=== PATIENT | male | born 1985 | race Caucasian/White ===

== ENCOUNTER 2021-06-08 14:36 | Emergency (ER) | payer OTHER, SELFPAY ==
[2021-06-08] VITALS (17 sets, daily range): BP systolic 121–158; BP diastolic 65–89; PULSE 58–88; RESP 17–27; TEMP 37.3; O2SAT 98–100
--- NOTE | 2021-06-08 14:41 | ED.GENADUL_ITS ---
Discharge Plan Disposition Patient Disposition: HOME Condition: Stable Discharge Details Clinical Impression: Pneumothorax on left, Fracture, ribs Primary Care Provider: Unknown,Unknown ED Provider: Diana Zavala Home Meds and New Rx's Prescriptions: New oxycodone 5 mg tablet 5 mg PO Q6H PRN (Reason: pain) Qty: 10 RF: 0 Discharge Instructions Instructions: Traumatic Pneumothorax (ED), Rib Fracture (ED) Additional Instructions: Apply ice to the affected area several times daily for 20 minutes at a time. Alternate tylenol and motrin as needed and directed for pain. Take the oxycodone for pain not relieved with Tylenol or Motrin. You can also try [id number] lidocaine patches to take as needed and directed for pain. Use the incentive spirometer as directed to ensure that you are taking deep breaths to prevent the development of pneumonia. Obtain an outpatient chest x-ray in 1 week for further evaluation and to assess for resolution of the pneumothorax. You were given an outpatient prescription order for a chest xray. No snowboarding, scuba diving or flying for 6 weeks. No aerobic exercise for 2 weeks. Follow-up with your primary care doctor in 1 week. Return to any emergency department with any worsening or new concerning symptoms such as difficulty breathing, worsening pain, vomiting or any other concerns. Discharge Data Discharge Date/Time-TO BE ENTERED AT DEPARTURE: 06/08/21 17:18 Discharge Physician: Diana Zavala Medical Decision Making <SONAL Chappell - Last Filed: 06/09/21 08:04> 35-year-old gentleman presents after a snowboard accident proximal hours ago. Although not moving fast, had direct trauma to his anterior upper abdomen and lower chest wall. He appears uncomfortable but his pulse is in the 80s, O2 sats 98% on room air. Diminished-question absent left lower breath sounds. Examination certainly concerning for a pneumothorax, rib fracture, chest wall injury, splenic contusion and/or laceration, etc. Plan to obtain IV access, routine laboratory values and obtain CT imaging of his chest, abdomen, pelvis with contrast. Patient will be given 1 L IV fluid. Patient declines any pain medication. Scalp view of the CT available, pneumothorax present. Awaiting additional imaging. Patient placed on 2 L nasal cannula O2. Discussed initial CT findings with patient, he is agreeable to IV morphine, I spoke with his who was outside in the car regarding his visit as well. Laboratory values do not reveal any obvious emergent process. CT finding reveal 5th and fourth rib fracture, small pneumothorax, maximum dimension of 2 cm. Mild opacities in the lower lobes may represent atelectasis or contusions. Case discussed with Dr. Rosales, surgery, who will personally evaluate the CT and patient and give recommendations. Imaging Data Radiologic Study: Attestation: I personally reviewed and interpreted this imaging study as follows: Imaging: CT Scan Radiologist's impression: PROCEDURE INFORMATION: Exam: CT Chest With Contrast; Diagnostic Exam date and time: 06/08/2021 2:57 PM Age: 35 years old Clinical indication: Injury or trauma; Other: Snowboard accident; Generalized; Blunt trauma (contusions or hematomas); Injury date: 06/08/20 TECHNIQUE: Imaging protocol: Diagnostic computed tomography of the chest with contrast. Radiation optimization: All CT scans at this facility use at least one of these dose optimization techniques: automated exposure control; mA and/or kV adjustment per patient size (includes targeted exams where dose is matched to clinical indication); or iterative reconstruction. Contrast material: [id number]; Contrast volume: 100 ml; Contrast route: INTRAVENOUS (IV); COMPARISON: No relevant prior studies available. FINDINGS: Lungs: Mild opacities in the lower lobes may represent atelectasis or contusions.. Pleural spaces: Small pneumothorax anteriorly . Maximum dimension 2 cm. Heart: Unremarkable. No cardiomegaly. No pericardial effusion. Aorta: Unremarkable. No aortic aneurysm. Lymph nodes: Unremarkable. No enlarged lymph nodes. Bones/joints: Minimally displaced left lateral 5th rib fracture. Subcutaneous emphysema adjacent to the fracture. Mild contour abnormality in the left anterior 4th rib may represent nondisplaced fracture.. Soft tissues: See Bones/joints finding. IMPRESSION: 1. Minimally displaced left lateral 5th rib fracture. Subcutaneous emphysema adjacent to the fracture. Mild contour abnormality in the left anterior 4th rib may represent nondisplaced fracture.. 2. Small pneumothorax anteriorly . Maximum dimension 2 cm. LUZ MARINA ZAYAS Preliminary Radiology Report Page 2 of 3 3. Mild opacities in the lower lobes may represent atelectasis or contusions.. Radiologic Study #2: Imaging: X-Ray Radiologist's impression: PROCEDURE INFORMATION: Exam: XR Chest Exam date and time: 06/08/2021 3:25 PM Age: 35 years old Clinical indication: Injury or trauma; Other: Snowboard accident; Blunt trauma (contusions or hematomas); Injury date: 06/08/20; Injury details: Lt pneumothorax, assess TECHNIQUE: Imaging protocol: XR of the chest. Views: 1 view. COMPARISON: CT CHEST/ABD/PEL W 06/08/2021 3:03 PM FINDINGS: Lungs: Patchy opacities in the left hemithorax may represent atelectasis or contusion Pleural spaces: Lucency in the left apex consistent with small left pneumothorax Heart/Mediastinum: Unremarkable. No cardiomegaly. Bones/joints: Minimally displaced left lateral rib fracture seen better on CT IMPRESSION: Patchy opacities in the left hemithorax may represent atelectasis or contusion Lab Data Lab results reviewed: Yes I reviewed the patient's lab results. Labs: Laboratory Tests Range/Units 06/08/21 06/08/21 06/08/21 15:00 15:00 15:00 WBC (4.4-10.8) 10^3/uL 11.71 H RBC (4.36-5.78) 10^6/uL 4.95 Hgb (13.5-17.5) g/dL 14.9 Hct (40.0-50.0) % 44.5 MCV (80-95) fL 89.9 MCH (27.0-33.0) pg 30.1 MCHC (32.0-36.0) % 33.5 RDW (11.8-14.1) % 12.0 Plt Count (130-400) 10^3/uL 251 MPV (8.0-11.0) fL 10.6 Immature Gran % 0.3 Neutrophils % 83.1 Lymphocytes % 11.1 Monocytes % 4.4 Eosinophils % 0.8 Basophils % 0.3 Nucleated RBC % % 0 Absolute Neutrophils (1.2-6.7) 10^3/uL 9.73 H Absolute Lymphocytes (1.2-3.4) 10^3/uL 1.30 Absolute Monocytes (0.1-0.8) 10^3/uL 0.52 Absolute Eosinophils (0.0-0.7) 10^3/uL 0.09 Absolute Basophils (0.0-0.2) 10^3/uL 0.04 Sodium (136-145) mmol/L 142 Potassium (3.5-5.1) mmol/L 3.7 Chloride (98-107) mmol/L 107 Carbon Dioxide (21.0-32.0) mmol/L 24.6 Anion Gap (3-11) mmol/L 10.4 BUN (7-18) mg/dL 24 H Creatinine (0.70-1.30) mg/dL 1.5 H Estimated GFR/1.73 m2 (mL/min/1.73m2) 52.95 Glucose (74-106) mg/dL 81 Calcium (8.5-10.1) mg/dL 9.2 Magnesium (1.8-2.4) mg/dL 1.8 Total Bilirubin (0.2-1.0) mg/dL 0.5 AST (15-37) U/L 43 H ALT (16-63) U/L 49 Alkaline Phosphatase (46-116) U/L 67 Troponin I (<or=60) ng/L < 50 Total Protein (6.4-8.2) g/dL 7.4 Albumin (3.4-5.0) g/dL 4.3 Lipase (73-393) U/L 138 COVID-19 Source Patient ABO/Rh A Positive Antibody Screen NEGATIVE Range/Units 06/08/21 15:25 WBC (4.4-10.8) 10^3/uL RBC (4.36-5.78) 10^6/uL Hgb (13.5-17.5) g/dL Hct (40.0-50.0) % MCV (80-95) fL MCH (27.0-33.0) pg MCHC (32.0-36.0) % RDW (11.8-14.1) % Plt Count (130-400) 10^3/uL MPV (8.0-11.0) fL Immature Gran % Neutrophils % Lymphocytes % Monocytes % Eosinophils % Basophils % Nucleated RBC % % Absolute Neutrophils (1.2-6.7) 10^3/uL Absolute Lymphocytes (1.2-3.4) 10^3/uL Absolute Monocytes (0.1-0.8) 10^3/uL Absolute Eosinophils (0.0-0.7) 10^3/uL Absolute Basophils (0.0-0.2) 10^3/uL Sodium (136-145) mmol/L Potassium (3.5-5.1) mmol/L Chloride (98-107) mmol/L Carbon Dioxide (21.0-32.0) mmol/L Anion Gap (3-11) mmol/L BUN (7-18) mg/dL Creatinine (0.70-1.30) mg/dL Estimated GFR/1.73 m2 (mL/min/1.73m2) Glucose (74-106) mg/dL Calcium (8.5-10.1) mg/dL Magnesium (1.8-2.4) mg/dL Total Bilirubin (0.2-1.0) mg/dL AST (15-37) U/L ALT (16-63) U/L Alkaline Phosphatase (46-116) U/L Troponin I (<or=60) ng/L Total Protein (6.4-8.2) g/dL Albumin (3.4-5.0) g/dL Lipase (73-393) U/L COVID-19 Source Nasal/Nares Patient ABO/Rh Antibody Screen <Diana Zavala DO - Last Filed: 06/09/21 10:49> 1530 --please see SONAL Martin's note for initial presentation, exam, and plan. Case endorsed to follow-up with Dr. Rosales. 1630 --Dr. Rosales reviewed imaging and as pneumothorax is ~ 5% with normal heart rate and oxygen saturation, she states patient could reasonably be discharged home with incentive spirometer if he would prefer to go home. Patient was on his way home to [place] when he stopped here and he states he would prefer to go home. Dr. Rosales recommends follow-up chest x-ray in 1 week to assess for re solution of pneumothorax. He was given a paper prescription for a 2 view chest x-ray. He was advised to alternate Tylenol and Motrin, Lidoderm patches and was given oxycodone for breakthrough pain. He was advised no flying, scuba diving or snowboarding for 6 weeks and no aerobic exercise for 2 weeks. He was given an incentive spirometer for home. Patient was given radiology disc to go. Advised to follow-up in any emergency department with any worsening or new concerning symptoms such as worsening shortness of breath, chest pain, abdominal pain or vomiting. Medical Records Medical records reviewed: Yes I reviewed the patient's medical records. Imaging Data Radiologic Study: Radiologist's impression: XR Chest Exam date and time: 06/08/2021 3:25 PM Age: 35 years old Clinical indication: Injury or trauma; Other: Snowboard accident; Blunt trauma (contusions or hematomas); Injury date: 06/08/20; Injury details: Lt pneumothorax, assess TECHNIQUE: Imaging protocol: XR of the chest. Views: 1 view. COMPARISON: CT CHEST/ABD/PEL W 06/08/2021 3:03 PM FINDINGS: Lungs: Patchy opacities in the left hemithorax may represent atelectasis or contusion Pleural spaces: Lucency in the left apex consistent with small left pneumothorax Heart/Mediastinum: Unremarkable. No cardiomegaly. Bones/joints: Minimally displaced left lateral rib fracture seen better on CT IMPRESSION: Patchy opacities in the left hemithorax may represent atelectasis or contusion Lab Data Lab results reviewed: Yes I reviewed the patient's lab results. Labs: Laboratory Tests Range/Units 06/08/21 06/08/21 06/08/21 15:00 15:00 15:00 WBC (4.4-10.8) 10^3/uL 11.71 H RBC (4.36-5.78) 10^6/uL 4.95 Hgb (13.5-17.5) g/dL 14.9 Hct (40.0-50.0) % 44.5 MCV (80-95) fL 89.9 MCH (27.0-33.0) pg 30.1 MCHC (32.0-36.0) % 33.5 RDW (11.8-14.1) % 12.0 Plt Count (130-400) 10^3/uL 251 MPV (8.0-11.0) fL 10.6 Immature Gran % 0.3 Neutrophils % 83.1 Lymphocytes % 11.1 Monocytes % 4.4 Eosinophils % 0.8 Basophils % 0.3 Nucleated RBC % % 0 Absolute Neutrophils (1.2-6.7) 10^3/uL 9.73 H Absolute Lymphocytes (1.2-3.4) 10^3/uL 1.30 Absolute Monocytes (0.1-0.8) 10^3/uL 0.52 Absolute Eosinophils (0.0-0.7) 10^3/uL 0.09 Absolute Basophils (0.0-0.2) 10^3/uL 0.04 Sodium (136-145) mmol/L 142 Potassium (3.5-5.1) mmol/L 3.7 Chloride (98-107) mmol/L 107 Carbon Dioxide (21.0-32.0) mmol/L 24.6 Anion Gap (3-11) mmol/L 10.4 BUN (7-18) mg/dL 24 H Creatinine (0.70-1.30) mg/dL 1.5 H Estimated GFR/1.73 m2 (mL/min/1.73m2) 52.95 Glucose (74-106) mg/dL 81 Calcium (8.5-10.1) mg/dL 9.2 Magnesium (1.8-2.4) mg/dL 1.8 Total Bilirubin (0.2-1.0) mg/dL 0.5 AST (15-37) U/L 43 H ALT (16-63) U/L 49 Alkaline Phosphatase (46-116) U/L 67 Troponin I (<or=60) ng/L < 50 Total Protein (6.4-8.2) g/dL 7.4 Albumin (3.4-5.0) g/dL 4.3 Lipase (73-393) U/L 138 COVID-19 Source Patient ABO/Rh A Positive Antibody Screen NEGATIVE Range/Units 06/08/21 15:25 WBC (4.4-10.8) 10^3/uL RBC (4.36-5.78) 10^6/uL Hgb (13.5-17.5) g/dL Hct (40.0-50.0) % MCV (80-95) fL MCH (27.0-33.0) pg MCHC (32.0-36.0) % RDW (11.8-14.1) % Plt Count (130-400) 10^3/uL MPV (8.0-11.0) fL Immature Gran % Neutrophils % Lymphocytes % Monocytes % Eosinophils % Basophils % Nucleated RBC % % Absolute Neutrophils (1.2-6.7) 10^3/uL Absolute Lymphocytes (1.2-3.4) 10^3/uL Absolute Monocytes (0.1-0.8) 10^3/uL Absolute Eosinophils (0.0-0.7) 10^3/uL Absolute Basophils (0.0-0.2) 10^3/uL Sodium (136-145) mmol/L Potassium (3.5-5.1) mmol/L Chloride (98-107) mmol/L Carbon Dioxide (21.0-32.0) mmol/L Anion Gap (3-11) mmol/L BUN (7-18) mg/dL Creatinine (0.70-1.30) mg/dL Estimated GFR/1.73 m2 (mL/min/1.73m2) Glucose (74-106) mg/dL Calcium (8.5-10.1) mg/dL Magnesium (1.8-2.4) mg/dL Total Bilirubin (0.2-1.0) mg/dL AST (15-37) U/L ALT (16-63) U/L Alkaline Phosphatase (46-116) U/L Troponin I (<or=60) ng/L Total Protein (6.4-8.2) g/dL Albumin (3.4-5.0) g/dL Lipase (73-393) U/L COVID-19 Source Nasal/Nares Patient ABO/Rh Antibody Screen HPI <SONAL Chappell - Last Filed: 06/09/21 08:04> General Mode of arrival: ambulatory . Date/Time Provider Initiated Documentation: 06/08/21 14:37 . Limitations to Documentation: no limitations . Information obtained by: patient . HPI Narrative: This is a 35-year-old gentleman, fully vaccinated, reports that he had COVID approximately 1 month ago, presenting to the ER for left upper quadrant and left lower chest discomfort status post a snowboarding accident. Approximately 2 hours ago he states that he was snowboarding on steep terrain, although he was not going very fast, he fell forward and a stump hit him directly in the trunk. He reports moderate to severe pain, worse with movement or taking a deep breath. He was wearing a helmet and denies striking his head, headache, LOC, neck pain. Reports the pain in his left anterior trunk radiates to his back but denies any specific back pain. He denies any nausea or vomiting, change in bowel or bladder function, numbness, tingling, weakness, pain in his extremities. Related Data Home Medications Medication Instructions Recorded Confirmed oxycodone 5 mg PO Q6H PRN #10 tab 06/08/21 Previous Rx's Medication Instructions Recorded oxycodone 5 mg PO Q6H PRN #10 tab 06/08/21 Allergies Allergy/AdvReac Type Severity Reaction Status Date / Time No Known Allergies Allergy Unverified 06/08/21 14:46 Review of Systems <SONAL Chappell - Last Filed: 06/09/21 08:04> Constitutional Constitutional: Denies fever(s) and Denies headache(s) Eyes Eyes: Denies change in vision ENT Ears, Nose, Mouth, and Throat: Denies headache(s) and Denies neck pain Cardiovascular Cardiovascular: Reports chest pain (chest wall) and Reports dyspnea Respiratory Respiratory: Denies cough and Reports dyspnea Gastrointestinal Gastrointestinal: Reports abdominal pain, Denies nausea and Denies vomiting Genitourinary Genitourinary: Denies hematuria Musculoskeletal Musculoskeletal: Reports back pain (Pain radiates to his back) and Denies neck pain Integumentary/Breasts Skin/Breast: Denies rash Neurologic Neurologic: Denies headache(s) Hematologic/Lymphatic Hematologic/Lymphatic: Denies easy bleeding and Denies easy bruising PFSH <SONAL Chappell - Last Filed: 06/09/21 08:04> All Active Problems (Updated 06/08/21 @ 16:37 by Talia Rosales DO) Left pulmonary contusion (Acute) Traumatic pneumothorax (Acute) Pneumothorax on left (Acute) Multiple rib fractures (Acute) Social History Smoking/Tobacco Use Status: Never Smoking risk assessment performed?: Yes Alcohol Intake: never Drug use: Occasionally Substance use type: marijuana Do you feel safe at home: Yes Do you feel safe in your relationship?: Yes Exam <SONAL Chappell - Last Filed: 06/09/21 08:04> Const General: cooperative, healthy appearing and other (The patient appears uncomfortable) Orientation: alert, awake and oriented x3 HENMT Head: normal to inspection, normocephalic and atraumatic Face and sinus: normal facial exam Mouth: moist mucous membranes Eyes General: appearance normal, both eyes and all related structures Conjunctivae: conjunctivae normal Neck Neck: normal visual inspection, full ROM, trachea midline, supple and nontender Chest Chest: normal inspection of the chest, no crepitus and tenderness Resp Effort & Inspection: normal respiratory effort and able to speak in complete sentences Auscultation: diminished lung sounds on the left in the lower lung castillo Cardio Rate: regular rate Rhythm: regular rhythm GI Palpation: soft, not firm, no guarding, no pulsatile masses and tender Auscultation: normal bowel sounds Back/Spine/Pelvis Back: No back tenderness Skin General skin exam: no rashes or lesions noted Neuro General: patient alert, patient awake, patient oriented x3, moves all extremitie s and no focal motor deficits Cognition: normal cognition Speech: speech normal Gait: normal gait Sensory Exam: no sensory deficits noted Extrem General: normal to inspection, full ROM and capillary refill normal Psych Appearance: grossly normal Mental Status: mental status grossly normal Critical Care Time <SONAL Chappell - Last Filed: 06/09/21 08:04> Critical Care Time Critical Care Time: Yes Total Critical Care Time: 35 Attestation: Upon my evaluation, this patient had a high probability of clinically significant, life-threatening deterioration due to their current medical conditions, which required my direct attention, intervention, and personal management. I have personally provided greater than 30 minutes of critical care time exclusive of the time spend on separately billable procedures. Time includes obtaining a history, examining the patient, pulse oximetry, review of laboratory data, radiology results, discussion with consultants, arranging urgent treatment with development of a management plan, evaluation of patient's response to treatment, and monitoring for potential decompensation. Interventions were performed as documented above. Sign Out <SONAL Chappell - Last Filed: 06/09/21 08:04> Sign Out Data: Sign Out Comment: Snowboarding injury, small left pneumothorax and rib fractures time 2. He appears hemodynamically stable. Awaiting surgical consultation Last updated by Ignacio Martin PA at 06/08/21 15:50
--- NOTE | 2021-06-08 14:45 | DI.CT_ITS ---
Exam(s) CT CHEST/ABD/PEL W EXAM: CT CHEST/ABD/PEL W CLINICAL HISTORY: snowboard accident. TECHNIQUE: Imaging Protocol: Axial computed tomography images with coronal and sagittal reformatted images were created and reviewed CONTRAST MATERIAL: Intravenous: Omnipaque 350 Contrast volume:100 ml Oral: None COMPARISON: No exams were available for comparison FINDINGS: CHEST: LUNGS: There is a left-sided pneumothorax approximately 10-15 percent. No lung contusion on either s rupert. No pleural effusions. The left-sided pneumothorax is related to nondisplaced fracture of the 5 th left rib. No other rib fractures identified. No sternal fracture. No clavicle fracture. No sca pular fracture. No focal findings in the trachea and mainstem bronchi. MEDIASTINUM: No significant mediastinal hematoma. No incidental hilar nor mediastinal adenopathy. CARDIAC: Heart size is normal. There is no pericardial effusion.Thoracic aorta appears intact. OSSEOUS: Nondisplaced left 5th rib fracture. Overlying subcutaneous emphysema.. ABDOMEN: There is no ascites. LIVER: No evidence of a patent laceration nor other incidental findings in the liver. GALLBLADDER/BILIARY: No obvious gallbladder pathology. CBD is not dilated. PANCREAS: No evidence of pancreatic mass nor dilatation of the pancreatic duct. SPLEEN: No splenic lacerations. No perisplenic fluid. Spleen size is normal. Splenic and portal ve ins are patent. ADRENALS: There are no significant adrenal masses. KIDNEYS: No evidence of renal laceration or subcapsular hematoma.. No other focal significant findin gs in either kidney. ABDOMINAL AORTA: Intact and not enlarged. No obvious dissection. LYMPH NODES: There is no retroperitoneal nor paraaortic adenopathy. ABDOMINAL WALL: No evidence of significant anterior abdominal wall nor inguinal hernia. GI: There is no evidence of bowel obstruction.No obvious mesenteric nor bowel wall hematoma. PELVIS: Images of the pelvis are blurred by motion artifact. No obvious abnormal fluid collection in the pelvis. LYMPH NODES: There is no intrapelvic nor inguinal adenopathy. GI: No evidence of appendicitis.No evidence of sigmoid diverticulitis. URINARY BLADDER: No clots. No calculi in the bladder lumen. REPRODUCTIVE: Prostate size normal. Seminal vesicles unremarkable. OSSEOUS: No fractures seen other than the left 5th rib fracture. IMPRESSION: 1. There is a nondisplaced fracture of the left 5th rib and there is an ipsilateral pneumothorax, roseann roximately 10-15 percent, not associated with shift nor other signs of tension pneumothorax. There i s no lung contusion or pleural effusion and there is no mediastinal hematoma. 2. No evidence of significant trauma sequelae in the abdomen and pelvis. RADIATION DOSE DELIVERED: 2,325.3mGy.cm Total DLP DATA REPOSITORY: All CT scans at this facility are submitted to the National Radiology Data Registry (NRDR) Dose Index Registry (DIR) with the [employer] (A[employer]). RADIATION OPTIMIZATION: All CT scans at this facility use at least one of these dose optimization te chniques: automated exposure control; mA and/or kV adjustment per patient size (includes targeted exa ms where dose is matched to clinical indication); or iterative reconstruction.
[2021-06-08 15:13] LABS: Abs Immature Grans 0.04 10^3/uL (0.0-0.06); Absolute Basophil Count 0.04 10^3/uL (0.0-0.2); Absolute Eosinophil Count 0.09 10^3/uL (0.0-0.7); Absolute Monocyte Count 0.52 10^3/uL (0.1-0.8); Absolute Neutrophil Count 9.73 10^3/uL (1.2-6.7); Basophils % 0.3; Eosinophils % 0.8; HCT 44.5 % (40.0-50.0); HGB 14.9 g/dL (13.5-17.5); Immature Grans % 0.3; Lymphocytes % 11.1; MCH 30.1 pg (27.0-33.0); MCHC 33.5 % (32.0-36.0); MCV 89.9 fL (80-95); MPV 10.6 fL (8.0-11.0); Monocytes % 4.4; Neutrophils % 83.1; Nucleated RBC 0 %; Platelet Count 251 10^3/uL (130-400); RBC 4.95 10^6/uL (4.36-5.78); RDW-SD 39.7 fL; WBC 11.71 10^3/uL (4.4-10.8)
[2021-06-08 15:26] LABS: ALT 49 U/L (16-63); AST 43 U/L (15-37); Albumin 4.3 g/dL (3.4-5.0); Alkaline Phosphatase 67 U/L (46-116); Anion Gap 10.4 mmol/L (3-11); BUN 24 mg/dL (7-18); Bilirubin, Total 0.5 mg/dL (0.2-1.0); CO2 24.6 mmol/L (21.0-32.0); CREATININE 1.5 mg/dL (0.70-1.30); Calcium 9.2 mg/dL (8.5-10.1); Chloride 107 mmol/L (98-107); Estimated GFR 52.95 (mL/min/1.73m2); Glucose 81 mg/dL (74-106); Lipase 138 U/L (73-393); Magnesium 1.8 mg/dL (1.8-2.4); Potassium 3.7 mmol/L (3.5-5.1); Sodium 142 mmol/L (136-145); Total Protein 7.4 g/dL (6.4-8.2); Troponin I < 50 ng/L (<or=60)
[2021-06-08] MEDS: Normal Saline 1,000 ML 1000 ML IV (15:26)
--- NOTE | 2021-06-08 15:38 | DI.RAD_ITS ---
Exam(s) XR PORTABLE CHEST AP EXAM: XR PORTABLE CHEST AP CLINICAL HISTORY: L side pneumothorax on CT, assess on xray. TECHNIQUE: 2D digital imaging was performed. COMPARISON: CT CT CHEST/ABD/PEL W from 06/08/2021 FINDINGS: Heart size upper normal. Mediastinum is not widened. There is a small left-sided pneumothorax, appr oximately 15 percent. Also mild increased markings in the left lung, probably related to the mild vo lume loss but there are no confluent infiltrates and there are no pleural effusions. No shift of mid line structures. No clavicle fractures.. The mediastinum is not widened. Lungs are clear. No infiltrates nor obvious pleural effusions. IMPRESSION: Small left pneumothorax. Please note that there is a nondisplaced fracture of the left 5th rib seen on CT scan. No evidence of tension pneumothorax. No pleural effusions. DATA REPOSITORY: RADIATION DOSE DELIVERED: All CT scans at this facility use at least one of these dose optimization techniques: automated exposure control; mA and/or kV adjustment per patient size (includes targeted e xams where dose is matched to clinical indication); or iterative reconstruction.
--- NOTE | 2021-06-08 15:39 | DI.VRAD_ITS ---
PROCEDURE INFORMATION: Exam: CT Chest With Contrast; Diagnostic Exam date and time: 06/08/2021 2:57 PM Age: 35 years old Clinical indication: Injury or trauma; Other: Snowboard accident; Generalized; Blunt trauma (contusions or hematomas); Injury date: 06/08/20 TECHNIQUE: Imaging protocol: Diagnostic computed tomography of the chest with contrast. Radiation optimization: All CT scans at this facility use at least one of these dose optimization techniques: automated exposure control; mA and/or kV adjustment per patient size (includes targeted exams where dose is matched to clinical indication); or iterative reconstruction. Contrast material: [id number]; Contrast volume: 100 ml; Contrast route: INTRAVENOUS (IV); COMPARISON: No relevant prior studies available. FINDINGS: Lungs: Mild opacities in the lower lobes may represent atelectasis or contusions.. Pleural spaces: Small pneumothorax anteriorly . Maximum dimension 2 cm. Heart: Unremarkable. No cardiomegaly. No pericardial effusion. Aorta: Unremarkable. No aortic aneurysm. Lymph nodes: Unremarkable. No enlarged lymph nodes. Bones/joints: Minimally displaced left lateral 5th rib fracture. Subcutaneous emphysema adjacent to the fracture. Mild contour abnormality in the left anterior 4th rib may represent nondisplaced fracture.. Soft tissues: See Bones/joints finding. IMPRESSION: 1. Minimally displaced left lateral 5th rib fracture. Subcutaneous emphysema adjacent to the fracture. Mild contour abnormality in the left anterior 4th rib may represent nondisplaced fracture.. 2. Small pneumothorax anteriorly . Maximum dimension 2 cm. 3. Mild opacities in the lower lobes may represent atelectasis or contusions.. PROCEDURE INFORMATION: Exam: CT Abdomen And Pelvis With Contrast Exam date and time: 06/08/2021 2:57 PM Age: 35 years old Clinical indication: Injury or trauma; Other: Snowboard accident; Generalized; Blunt trauma (contusions or hematomas); Injury date: 06/08/20 TECHNIQUE: Imaging protocol: Computed tomography of the abdomen and pelvis with contrast. Radiation optimization: All CT scans at this facility use at least one of these dose optimization techniques: automated exposure control; mA and/or kV adjustment per patient size (includes targeted exams where dose is matched to clinical indication); or iterative reconstruction. Contrast material: [id number]; Contrast volume: 100 ml; Contrast route: INTRAVENOUS (IV); COMPARISON: No relevant prior studies available. FINDINGS: Liver: Normal. No mass. Gallbladder and bile ducts: Normal. No calcified stones. No ductal dilation. Pancreas: Normal. No ductal dilation. Spleen: Normal. No splenomegaly. Adrenal glands: Normal. No mass. Kidneys and ureters: Normal. No hydronephrosis. Stomach and bowel: Unremarkable. No obstruction. No mucosal thickening. Appendix: No evidence of appendicitis. Intraperitoneal space: Minimal free fluid in the pelvis Vasculature: Unremarkable. No abdominal aortic aneurysm. Lymph nodes: Unremarkable. No enlarged lymph nodes. Urinary bladder: Unremarkable as visualized. Reproductive: Unremarkable as visualized. Bones/joints: Unremarkable. No acute fracture. Soft tissues: Unremarkable. IMPRESSION: No acute process THIS REPORT CONTAINS FINDINGS THAT MAY BE CRITICAL TO PATIENT CARE. The findings were verbally communicated via telephone conference with Ignacio Martin at 3:35 PM EST on 06/08/2021. The findings were acknowledged and understood. Dictated and Authenticated by: Merrill Rosa MD. Ordering:HUGH Pierre MD
[2021-06-08 15:40] LABS: Source Nasal/Nares
[2021-06-08] MEDS: Omnipaque 350 MG/ML 100 ML BTL IJ (15:42)
[2021-06-08] MEDS: Normal Saline Flush 10 ML SYR IVP (15:43)
[2021-06-08 15:44] LABS: INR 1.1 (0.9-1.1); Prothrombin Time 10.9 sec (9.3-11.0)
--- NOTE | 2021-06-08 15:45 | DI.VRAD_ITS ---
PROCEDURE INFORMATION: Exam: XR Chest Exam date and time: 06/08/2021 3:25 PM Age: 35 years old Clinical indication: Injury or trauma; Other: Snowboard accident; Blunt trauma (contusions or hematomas); Injury date: 06/08/20; Injury details: Lt pneumothorax, assess TECHNIQUE: Imaging protocol: XR of the chest. Views: 1 view. COMPARISON: CT CHEST/ABD/PEL W 06/08/2021 3:03 PM FINDINGS: Lungs: Patchy opacities in the left hemithorax may represent atelectasis or contusion Pleural spaces: Lucency in the left apex consistent with small left pneumothorax Heart/Mediastinum: Unremarkable. No cardiomegaly. Bones/joints: Minimally displaced left lateral rib fracture seen better on CT IMPRESSION: Patchy opacities in the left hemithorax may represent atelectasis or contusion Dictated and Authenticated by: Merrill Rosa MD. Ordering:MICHAEL Ortiz MD
[2021-06-08 15:59] LABS: PTT Activated 20.3 sec (21.0-27.5)
[2021-06-08 16:06] LABS: Bilirubin Negative (Negative); Blood Negative (Negative); Clarity Clear (Clear); Glucose Negative (Negative); Ketones Trace mg/dL (Negative); Leukocyte Esterase Negative (Negative); Nitrite Negative (Negative); Specific Gravity 1.015 (1.005-1.025); Urobilinogen 0.2 EU/dL (Up TO 0.2); pH 5.5 (5-8)
[2021-06-08] MEDS: MORPHine 4 MG/ML SYR IVP (16:07)
[2021-06-08 16:14] LABS: COVID-19 PCR Negative (Negative)
[2021-06-08] MEDS: ACETAMINOPHEN 1,000 MG/100 ML BTL 400 MG IVPB (16:17)
--- NOTE | 2021-06-08 16:24 | W.SURGCON ---
Date of service: 06/08/21 Time of Service: 16:24 Assessment and Plan Assessment and plan (1) Traumatic pneumothorax: Status: Acute Assessment and plan: ~5% pneumothorax on left, vital signs stable in ER, OK to d/c home with close follow up and return precautions -Incentive spirometry at home -Chest x ray in 1 week with PCP follow up -Continued analgesia with Tylenol, Motrin, lidocaine patches and any other analgesic Rx from ER -No airplane trips or activities with changes in atmospheric pressure such as scuba diving or going up large mountains x6 weeks -Limited activity x2 weeks, light walking OK, no running/jogging as this may worsen pneumothorax and cause pain from rib fractures Qualifiers: Encounter type: initial encounter Qualified Code(s): S27.0XXA - Traumatic pneumothorax, initial encounter (2) Pneumothorax on left: Status: Acute (3) Multiple rib fractures: Status: Acute Assessment and plan: -Pain control and activity restrictions as above Qualifiers: Encounter type: initial encounter Fracture type: closed Laterality: left Qualified Code(s): S22.42XA - Multiple fractures of ribs, left side, initial encounter for closed fracture (4) Left pulmonary contusion: Status: Acute Assessment and plan: -Return precautions discussed with patient as well as activity restrictions above -Expected to be self limited and will heal with time Qualifiers: Encounter type: initial encounter Qualified Code(s): S27.321A - Contusion of lung, unilateral, initial encounter History of Present Illness Narrative: 35 year old male who presented to the ER after hitting a tree while snowboarding earlier today who now has left sided chest pain. CT scan revealed a small traumatic pneumothorax on the left and associated rib fractures in ribs 4 and 5. He also likely has a pulmonary contusion as a result of the trauma. He did not hit his head or lose consciousness. He is on his way back to [place] after [place] today and would prefer not to stay in the hospital. I was asked to see the patient for the aforementioned reasons and provide recommendations. Consults Consult date: 06/08/21 Requesting physician: Diana Zavala Review of Systems Constitutional Constitutional: Reports system reviewed and no additional complaints, except as documented and Denies headache(s) Eyes Eyes: Denies loss of vision ENT Ears, Nose, Mouth, and Throat: Denies dizziness and Denies headache(s) Cardiovascular Cardiovascular: Denies syncope Respiratory Respiratory: Denies hemoptysis, Reports pain on inspiration, Reports pain with cough, Reports dyspnea (mild), Denies stridor and Denies wheezing Gastrointestinal Gastrointestinal: Denies abdominal pain, Reports nausea (from morphine) and Denies vomiting Musculoskeletal Musculoskeletal: Reports as per HPI (pain in left anterolateral chest wall) and Denies abnormal gait Integumentary/Breasts Skin/Breast: Denies erythema, Denies skin swelling, Denies unusual bruising and Denies wounds Neurologic Neurologic: Denies abnormal speech, Denies abnormal gait, Denies confusion, Denies dizziness, Denies syncope, Denies headache(s), Denies loss of vision and Denies memory loss Psychiatric Psychiatric: Denies confusion and Denies memory loss Allergic/Immunologic Allergic/Immunologic: Denies wheezing PFSH All Active Problems (Updated 06/08/21 @ 16:37 by Talia Rosales DO) Left pulmonary contusion (Acute) Traumatic pneumothorax (Acute) Pneumothorax on left (Acute) Multiple rib fractures (Acute) Social History Smoking/Tobacco Use Status: Never Smoking risk assessment performed?: Yes Alcohol Intake: never Drug use: Occasionally Substance use type: marijuana Do you feel safe at home: Yes Do you feel safe in your relationship?: Yes Exam Const General: cooperative, healthy appearing, no acute distress and other (appears slightly uncomfortable) [facility] Head: normal to inspection, normocephalic and atraumatic Eyes Alignment and Position: alignment normal Periorbital: periorbital findings normal Conjunctivae: conjunctival abnormality (injection) bilaterally Sclera: sclerae normal Neck Neck: normal visual inspection, full ROM and trachea midline Chest Chest: normal inspection of the chest, abnormal inspection of the chest other (pain over left anterolateral chest wall), no crepitus, no masses and tenderness rib (left) Resp Effort & Inspection: normal respiratory effort, able to speak in complete sentences, no audible wheezes, no cough, respiratory effort not decreased, no grunting, not labored, no nasal flaring, no paradoxical thoraco-abdom movements, no respiratory distress, not tachypneic and no use of accessory muscles GI Inspection: normal to inspection, no edema and non-distended Skin General skin exam: no rashes or lesions noted Lesions: no lesions Rashes: no rashes Trauma: no lacerations or abrasions Wounds: no wounds Neuro General: patient alert, patient awake and patient oriented x3 Cognition: normal cognition Speech: speech normal Results Last Vital Signs Temp 99.1 F 06/08/21 14:43 Pulse 63 06/08/21 16:15 Resp 27 H 06/08/21 16:15 BP 140/81 06/08/21 16:15 Pulse Ox 100 06/08/21 16:15 Labs Result diagrams: 06/08/21 15:00 06/08/21 15:00 Labs: Laboratory Results - last 24 hr 06/08/21 06/08/21 06/08/21 15:00 15:00 15:00 WBC 11.71 H RBC 4.95 Hgb 14.9 Hct 44.5 MCV 89.9 MCH 30.1 MCHC 33.5 RDW 12.0 Plt Count 251 MPV 10.6 Immature Gran % 0.3 Neutrophils % 83.1 Lymphocytes % 11.1 Monocytes % 4.4 Eosinophils % 0.8 Basophils % 0.3 Nucleated RBC % 0 Absolute Neutrophils 9.73 H Absolute Lymphocytes 1.30 Absolute Monocytes 0.52 Absolute Eosinophils 0.09 Absolute Basophils 0.04 PT 10.9 INR 1.1 APTT 20.3 L Sodium 142 Potassium 3.7 Chloride 107 Carbon Dioxide 24.6 Anion Gap 10.4 BUN 24 H Creatinine 1.5 H Estimated GFR/1.73 m2 52.95 Glucose 81 Calcium 9.2 Magnesium 1.8 Total Bilirubin 0.5 AST 43 H ALT 49 Alkaline Phosphatase 67 Troponin I < 50 Total Protein 7.4 Albumin 4.3 Lipase 138 Urine Color Urine Clarity Urine pH Ur Specific [place] Urine Protein Urine Ketones Urine Blood Urine Nitrite Urine Bilirubin Urine Urobilinogen Ur Leukocyte Esterase Urine Glucose COVID-19 Source SARS-CoV-2 (PCR) Patient ABO/Rh Antibody Screen 06/08/21 06/08/21 06/08/21 15:00 15:25 16:00 WBC RBC Hgb Hct MCV MCH MCHC RDW Plt Count MPV Immature Gran % Neutrophils % Lymphocytes % Monocytes % Eosinophils % Basophils % Nucleated RBC % Absolute Neutrophils Absolute Lymphocytes Absolute Monocytes Absolute Eosinophils Absolute Basophils PT INR APTT Sodium Potassium Chloride Carbon Dioxide Anion Gap BUN Creatinine Estimated GFR/1.73 m2 Glucose Calcium Magnesium Total Bilirubin AST ALT Alkaline Phosphatase Troponin I Total Protein Albumin Lipase Urine Color Yellow Urine Clarity Clear Urine pH 5.5 Ur Specific [place] 1.015 Urine Protein Negative Urine Ketones Trace H Urine Blood Negative Urine Nitrite Negative Urine Bilirubin Negative Urine Urobilinogen 0.2 Ur Leukocyte Esterase Negative Urine Glucose Negative COVID-19 Source Nasal/Nares SARS-CoV-2 (PCR) Negative Patient ABO/Rh A Positive Antibody Screen NEGATIVE
[2021-06-08] MEDS: oxyCODONE 5 MG TAB PO (16:54)
== END 2021-06-08 17:18 | disposition home or self-care (01) ==
PROVIDERS: Physician Assistant; Emergency Provider Physician Assistant
DX: S27.0XXA Traumatic pneumothorax, initial encounter (principal); S22.42XA Multiple fractures of ribs, left side, initial encounter for closed fracture; V00.311A Fall from snowboard, initial encounter; Z20.822 Contact with and (suspected) exposure to COVID-19
CPT/HCPCS: 74177; 80053; 83690; 86850; 86900; 86901; 87635; 96361; 96365; 96375; 99285; 71045; 71260; 81003; 83735; 84484; 85025; 85610; 85730; 99284; J0131; J2270; J3490